=== PATIENT | male | born 1950 | race Caucasian/White ===

== ENCOUNTER → 2018-04-10 | Outpatient (CLI) | payer MEDICARE ==
[~2018-04-10] MED LIST: ATOR-2 PO; ATOR20TA9 PO; CLOP75TA PO; CLOP75TA52 PO; LOSA25TA5 PO; PROP80CA3 PO; [UNRECOGNIZED DRUG - REMARK] PO
== END | disposition home or self-care (01) ==
LOC: RAD 12:31
PROVIDERS: ATTEND Psychiatry & Neurology Neurology
DX: G31.89 Other specified degenerative diseases of nervous system (principal); G43.009 Migraine without aura, not intractable, without status migrainosus
CPT/HCPCS: 70551

== ENCOUNTER 2019-09-27 10:32 | Day surgery (SDC) | payer MEDICARE ==
[~2019-09-27] VITALS: Ht 175.3 cm; Wt 100.9 kg
[~2019-09-27 10:32] MED LIST changes: +APIX5TAB PO; +ATOR20TA37 PO; -ATOR20TA9 PO; +CYAN25009 PO; +LOSA25TA25 PO; -LOSA25TA5 PO; +LOSA50TA14 PO; +MAGN400T22 PO; +PROP20TA PO; +PROP60TA PO
[2019-09-27] MEDS ORDERED: LIDOCAINE 1%, 20ML ONE (11:05)
== END 2019-09-27 13:00 | disposition home or self-care (01) ==
LOC: CACL 10:32
PROVIDERS: ATTEND Internal Medicine Cardiovascular Disease
DX: R55 Syncope and collapse (principal); Z86.73 Personal history of transient ischemic attack (TIA), and cerebral infarction without residual deficits
CPT/HCPCS: 33285; C1764